=== PATIENT | female | born 2005 | race Two or more races ===

== ENCOUNTER 2023-12-15 22:18 | Emergency (ER) | payer OTHER ==
[~2023-12-15] VITALS: Ht 160 cm; Wt 78.0 kg
[2023-12-15] MEDS ORDERED: 0.9 % SODIUM CHLORIDE 1,000 ML IV ONE (23:00)
[2023-12-15] MEDS ORDERED: FAMOtidine 10 MG/ML (4ML VIAL) IV ONE (23:00)
[2023-12-15] MEDS ORDERED: ONDANSETRON HCL 2 MG/ML VIAL IV ONE (23:00)
[2023-12-15] MEDS ORDERED: ONDANSETRON HCL 2 MG/ML VIAL ONE (23:14)
[2023-12-15] MEDS ORDERED: FAMOTIDINE/PF 20 MG/2 ML VIAL ONE (23:14)
[2023-12-15 23:54] LABS: HEMOGLOBIN 12.6 g/dL (12.0-15.00); MEAN CELL VOLUME 86.1 fL (80.00-100.00); MEAN CORPUSCULAR HEMOGLOBIN 28.5 pg (27.00-32.0); MEAN CORPUSCULAR HGB CONC 33.2 g/dl (32.0-36.0); PLATELET COUNT 288 K/uL (150-450); RED BLOOD COUNT 4.41 M/uL (4.00-6.00); RED CELL DISTRIBUTION WIDTH 13.2 % (11.5-14.5)
[2023-12-15 23:55] LABS: URINE APPEARANCE Clear; URINE BILIRRUBIN Negative (NEGATIVE); URINE BLOOD Negative; URINE COLOR Yellow; URINE GLUCOSE Negative (NEGATIVE); URINE KETONE Trace (NEGATIVE); URINE LEUKOCYTE Negative; URINE NITRATE Negative; URINE PROTEIN Trace (NEGATIVE)
[2023-12-15 23:56] LABS: URINE BACTERIA 389.3 uL (0.0-1933); URINE RBC 5.4 uL (0.0-20.8); URINE WBC 4.1 uL (0.0-23.2)
[2023-12-16] LABS: URINE CAST 0.15 uL (0.0-1.40)
[2023-12-16] MEDS ORDERED: ZOFRAN8 MG PO (00:51)
== END 2023-12-16 01:14 | disposition home or self-care (01) ==
LOC: ER 22:20 → EMR PED 22:20 → ER 12-16 00:42
PROVIDERS: General Practice
DX: O26.891 Other specified pregnancy related conditions, first trimester (principal); R11.10 Vomiting, unspecified; J00 Acute nasopharyngitis [common cold]; Z20.822 Contact with and (suspected) exposure to COVID-19

== ENCOUNTER 2023-12-18 21:51 | Emergency (ER) | payer OTHER ==
[~2023-12-18] VITALS: Ht 167.6 cm; Wt 77.1 kg
[~2023-12-18 21:51] MED LIST: ZOFRAN8 MG PO
[2023-12-18] MEDS ORDERED: MEPERIDINE HCL/PF 25 MG/ML VIAL IM ONE (22:30)
[2023-12-18 23:21] LABS: URINE APPEARANCE Clear; URINE BILIRRUBIN Negative (NEGATIVE); URINE BLOOD Trace; URINE COLOR Yellow; URINE GLUCOSE Negative (NEGATIVE); URINE KETONE Trace (NEGATIVE); URINE LEUKOCYTE Negative; URINE NITRATE Negative; URINE PROTEIN Negative (NEGATIVE); URINE UROBILINOGEN 0.2 E.U./dl
[2023-12-18 23:25] LABS: URINE BACTERIA 1538.4 uL (0.0-1933); URINE EPITHELIAL CELLS 19.3 uL (0.0-38.8); URINE RBC 3.5 uL (0.0-20.8); URINE WBC 29.2 uL (0.0-23.2)
[2023-12-18 23:34] LABS: URINE CAST 0.76 uL (0.0-1.40)
[2023-12-18 23:44] LABS: HEMATOCRIT 37.5 % (36.0-45.00); HEMOGLOBIN 12.5 g/dL (12.0-15.00); MEAN CELL VOLUME 85.9 fL (80.00-100.00); MEAN CORPUSCULAR HEMOGLOBIN 28.8 pg (27.00-32.0); MEAN CORPUSCULAR HGB CONC 33.5 g/dl (32.0-36.0); PLATELET COUNT 331 K/uL (150-450); RED BLOOD COUNT 4.36 M/uL (4.00-6.00); RED CELL DISTRIBUTION WIDTH 13.4 % (11.5-14.5)
[2023-12-19] MEDS ORDERED: MEPERIDINE HCL/PF 25 MG/ML VIAL IM ONE (00:15)
== END 2023-12-19 02:54 ==
LOC: ER 21:52
PROVIDERS: General Practice
DX: O20.9 Hemorrhage in early pregnancy, unspecified (principal); Z3A.01 Less than 8 weeks gestation of pregnancy